=== PATIENT | female | born 1965 ===

== ENCOUNTER → 2019-03-08 22:14 | Outpatient (ROUT) | payer OTHER, SELFPAY ==
[2019-03-08 22:49] LABS: Add Manual Diff / Slide Review NO; Basophils Absolute Auto 0 /uL (0-100); Basophils Percent Auto 0.8 % (0-2); Eosinophils Absolute Auto 100 /uL (0-450); Eosinophils Percent Auto 2.1 % (2-4); Hematocrit 40.7 % (36-46); Hemoglobin 13.3 g/dL (12.0-16.0); Lymphocytes Absolute Auto 1600 /uL (1100-4500); Mean Corpuscular HGB Conc 32.6 % (30-36); Mean Corpuscular Hemoglobin 28.7 PG (26-34); Monocytes Absolute Auto 400 /uL (0-900); Monocytes Percent Auto 7.9 % (3-14); Neutrophils Absolute Auto 2600 /uL (1500-7000); Neutrophils Percent Auto 55.2 % (50-75); Platelet Count 209 X10^3/uL (150-400); Red Blood Cell Count 4.63 X10^6/uL (4.0-5.2); White Blood Cell Count 4.6 X10^3/uL (4.5-11.0)
[2019-03-08 22:53] LABS: Alanine Aminotransferase 25 IU/L (9-52); Albumin 4.4 g/dL (3.5-5.0); Albumin Globulin Ratio 1.7 (1.0-2.8); Alkaline Phosphatase 103 U/L (38-126); Aspartate Aminotransferase 28 IU/L (14-36); Bilirubin Total 0.3 mg/dL (0.2-1.3); Blood Urea Nitrogen 14 mg/dL (7-17); Calcium 9.6 mg/dL (8.4-10.2); Carbon Dioxide 29 mmol/L (22-32); Chloride 103 mmol/L (98-107); Estimated Glomerular Filt Rate > 60.0 mL/min (>60); Globulin 2.6 g/dL (1.7-4.1); Glucose 79 mg/dL (70-100); HEMOLYSIS < 15 (0-50); Sodium 142 mmol/L (137-145)
[2019-03-08 23:25] LABS: Ferritin 16.1 ng/mL (11.1-264)
[2019-03-08 23:30] LABS: TSH w/ Reflex to FT4 0.03 uIU/mL (0.47-4.68)
[2019-03-09 00:33] LABS: Free T4, Direct Thyroxine 1.19 ng/dL (0.78-2.19)
== END ==
PROVIDERS: Visit Provider Naturopath
DX: R60.0 Localized edema (principal); Z13.89 Encounter for screening for other disorder; G43.701 Chronic migraine without aura, not intractable, with status migrainosus; R14.0 Abdominal distension (gaseous); R53.83 Other fatigue; R10.30 Lower abdominal pain, unspecified
CPT/HCPCS: 36415; 80053; 82728; 84439; 84443; 85025